=== PATIENT | female | born 1980 | race Caucasian/White ===

== ENCOUNTER 2019-03-25 06:26 | Day surgery (SDC) | payer OTHER, SELFPAY ==
[2019-03-23 13:29] VITALS: BMI 30.5
[2019-03-25] VITALS (13 sets, daily range): BP systolic 120–156; BP diastolic 71–114; PULSE 60–83; RESP 11–20; TEMP 36.2–37; O2SAT 94–99; BMI 30.5
--- NOTE | 2019-03-25 | PATH_ITS ---
[facility] Accession Number: [id number] . 01 Material submitted: . endometrium - ENDOMETRIAL BIOPSIES . 02 Diagnosis: Endometrial Biopsies: Portions of interval phase and secretory endometrium; negative for glandular hyperplasia, cytologic atypia or malignancy. Portions of myometrium; negative for cytologic atypia, significantly increased mitotic activity or tumor necrosis. 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 [facility] 03/28/2019 1403 Local . 02 Electronically signed: . Jocelyne De Anda MD, Pathologist NPI- [id number] . 01 Gross description: . ENDOMETRIAL BIOPSIES: Received in formalin are minute fragments of mucoid and hemorrhagic material measuring 4.0 x 2.0 x 0.3 cm in aggregate. Submitted in toto in 3 cassettes. /[facility] 03/25/20192002 Local . 02 Pathologist provided ICD-10: N92.0, D25.0 . 02 CPT . 878625 Performed at: 01 [facility] [address] [facility], [place], [place] [id number] MD Ganesh Gregorio MD Phone: [phone] Performed at: 02 [facility] [place] [address] [place], [place] [id number] MD Parul Mayo MD Phone: [phone]
[2019-03-25] MEDS: LACTATED RINGERS 1,000 ML 42 ML IV (07:17)
--- NOTE | 2019-03-25 07:19 | SUR.PREOP ---
Patient resting in stretcher. Call light in place. Spouse at bedside.
--- NOTE | 2019-03-25 07:28 | PM.PREOP ---
Pre-operative Note Interval Note History & Physical reviewed/Exam performed by Physician: Yes Changes to H&P: No
--- NOTE | 2019-03-25 07:59 | SUR.OPER ---
Lithotomy on padded OR bed, head on pillow, arms secured on padded arm boards at <90 degrees abduction. Legs secured in padded yellow fins stirrups.
--- NOTE | 2019-03-25 08:26 | PM.OP.1 ---
Operative Date/Time/Diagnoses Date of procedure: 03/25/19 Time of procedure: 08:26 Pre-op diagnosis: Menorrhagia with submucous fibroid Post-op diagnosis: same Procedure & Clinicians Procedure: Hysteroscopy with resection of thickened endometrium over submucous fibroid Same procedure as scheduled: Yes Indications: Menorrhagia Surgeon: Randi Dias Click Yes if Unassisted: Yes Anesthesia Type: General Operative Notes Closure Type: not applicable Specimen(s): other (Endometrial biopsy) Estimated Blood Loss (mL): 20 Blood products transfused: none Procedure in detail: The patient was brought to the operating room where she underwent general anesthesia. She was placed in low stirrups She was prepped and draped in usual sterile fashion with pulsatile stockings in place and functional, warming in place, no antibiotics were indicated. A single-tooth tenaculum was placed on the anterior lip of the cervix and the uterus dilated to #8 Hegar dilator. The hysteroscope was placed into the uterus with a sorbitol solution running and under constant suction. The resecting loop set at 100 W of cutting was used to resect the fibroid down to the level of the endometrium. A endometrial curettage was performed. The fibroid and the endometrial curettage was sent to pathology. The patient went to recovery room in good condition counts of instruments and sponges were correct. Estimated blood loss less than 5 mL. The sorbitol solution I=O approximately 6000 mL. Complications: none Post-operative Condition: stable Disposition: same day surgery Plan for aftercare: Routine post hysteroscopy
[2019-03-25] MEDS: fentaNYL 100 MCG/2 ML INJ IV ×4 (08:30→08:49)
--- NOTE | 2019-03-25 08:50 | SUR.PHASEI ---
Patient reported pain improving
[2019-03-25] MEDS: HYDROMORPHONE 2 MG INJ IV ×2 (09:06→09:18)
[2019-03-25] MEDS: OXYCODONE/ACETAMINOPHEN 5/325 TABLET 1 TAB PO ×2 (09:16→09:43)
== END 2019-03-25 10:00 | disposition home or self-care (01) ==
PROVIDERS: Family Provider Nurse Practitioner Family; PCP Nurse Practitioner Family; Visit Provider Specialist
PROC: 0UDB8ZZ Extraction of Endometrium, Via Natural or Artificial Opening Endoscopic (ICD-10-PCS; CPT 58558; principal; 2019-03-25 07:45)
DX: D25.0 Submucous leiomyoma of uterus (principal); E06.3 Autoimmune thyroiditis
CPT/HCPCS: 58561; J1100; J1170; J1885; J2405; J2704; J3010